=== PATIENT | male | born 1975 | race Caucasian/White ===

== ENCOUNTER 2018-05-26 19:05 | Emergency (ER) | payer MEDICAID ==
[~2018-05-26] VITALS: Ht 170.2 cm; Wt 108.0 kg
[2018-05-26 19:10] VITALS: BP_SYST 139
--- NOTE | 2018-05-26 19:20 | NUR ---
Pt came in complaining of WHITMORE which started earlier today. Reports pain is 6/10. Associated photophobia with some nausea. Denies vomitting or diarrhea. No other complaints/injuries noted. Will cont. to monitor.
--- NOTE | 2018-05-26 19:30 | NUR ---
Pt went to CT. Tolerated well. Will cont. to monitor.
--- NOTE | 2018-05-26 19:35 | NUR ---
Patient to ER bed 4 to gown for evaluation. Side rails up. Report given to Sharmila BURROWS.
--- NOTE | 2018-05-26 19:52 | NUR ---
ER Dr. Castorena at bedside examining patient.
[2018-05-26] MEDS ORDERED: DIPHENHYDRAMINE INJ 50 MG/ML VIAL IVP ONE (20:15)
[2018-05-26] MEDS ORDERED: NACL 0.9% 1,000 ML IV ONE (20:15)
[2018-05-26] MEDS ORDERED: METOCLOPRAMIDE HCL 10 MG/2 ML VIAL IVP ONE (20:15)
--- NOTE | 2018-05-26 20:53 | NUR ---
Pts states that pt wants IV out. Reports that he feels "hot". ER MD made aware. IV fluids stopped and removed.
[2018-05-26 21:36] VITALS: BP_SYST 139
--- NOTE | 2018-05-26 21:36 | NUR ---
Patient given written and verbal discharge instructions and verbalizes understanding. ER MD Dr. Castorena discussed with patient the results and treatment provided. Patient in stable condition. ID arm band removed. IV catheter removed intact and dressing applied, no active bleeding. Rx of Vistaril and Anaprox given. Patient educated on pain management and to follow up with PMD. Pain Scale 0/10. Opportunity for questions provided and answered. Medication side effect fact sheet provided.
== END 2018-05-26 21:36 | disposition home or self-care (01) ==
LOC: SED 19:05
DX: R51 Headache (principal); I10 Essential (primary) hypertension; E11.9 Type 2 diabetes mellitus without complications; F17.210 Nicotine dependence, cigarettes, uncomplicated
CPT/HCPCS: 70450; 96374; 96375; 99284; J1200; J2765; J7030

== ENCOUNTER 2022-12-27 12:44 | Emergency (ER) | payer MEDICAID, OTHER ==
[~2022-12-27] VITALS: Ht 167.6 cm; Wt 100.2 kg
[2022-12-27 12:45] VITALS: BP_SYST 118; PULSE 104; RESP 20; TEMP 97.3; O2SAT 99
[2022-12-27 13:40] LABS: BASOPHILS % (AUTO) 0.8 % (0.0-2.0); EOSINOPHILS # (AUTO) 0.1 K/uL (0.0-0.4); EOSINOPHILS % (AUTO) 2.4 % (0.0-4.0); HEMATOCRIT 49.3 % (36-54); LYMPHOCYTES # (AUTO) 1.1 K/uL (1.0-5.5); LYMPHOCYTES % (AUTO) 27.9 % (20.5-51.5); MEAN CORPUSCULAR HEMOGLOBIN 26 pg (27-31); MEAN CORPUSCULAR HGB CONC 32 % (32-36); MEAN CORPUSCULAR VOLUME 79 fL (79.0-98.0); MONOCYTES # (AUTO) 0.4 K/uL (0.0-1.0); MONOCYTES % (AUTO) 11.4 % (1.7-9.3); NEUTROPHILS # (AUTO) 2.2 K/uL (1.8-7.7); NEUTROPHILS % (AUTO) 57.5 % (40.0-70.0); PLATELET COUNT (AUTO) 189 K/uL (130-430); RED BLOOD CELL COUNT(AUTO) 6.26 MIL/uL (4.2-6.2); RED CELL DISTRIBUTION WIDTH 14.3 % (9.0-15.0); WHITE BLOOD COUNT (AUTO) 3.8 K/uL (4.8-10.8)
[2022-12-27 14:12] LABS: ANION GAP 7 (5-15); CALCIUM 9.9 mg/dL (8.4-11.0); CARBON DIOXIDE 28 mmol/L (23-29); CHLORIDE 95 mmol/L (98-107); CREATININE 0.83 mg/dL (0.55-1.30); GFR AFRICAN AMERICAN 128 mL/min (>90); GLUCOSE 131 mg/dL (74-106); POTASSIUM 3.4 mmol/L (3.5-5.1); SODIUM SERUM 130 mmol/L (136-145); UREA NITROGEN, BLOOD 20 mg/dL (8-21)
[2022-12-27 14:19] LABS: ALANINE AMINOTRANSFERASE 28 U/L (12-78); ALBUMIN 4.1 g/dL (3.4-4.8); ASPARTATE AMINOTRANSFERASE 12 U/L (10-37); BILIRUBIN,DIRECT 0.1 mg/dL (0.0-0.3); GFR NON AFRICAN-AMERICAN 106 mL/min (>90); TOTAL BILIRUBIN 0.4 mg/dL (0.0-1.0)
[2022-12-27] MEDS ORDERED: KETOROLAC TROMETHAMINE 60 MG/2 ML VIAL IM ONE (14:45)
[2022-12-27] MEDS ORDERED: IBUP-1971 PO (15:25)
[2022-12-27] MEDS ORDERED: DICL20GE TP (15:25)
[2022-12-27 15:41] VITALS: BP_SYST 132; PULSE 95; RESP 16; TEMP 98.1; O2SAT 99
== END 2022-12-27 15:37 | disposition home or self-care (01) ==
LOC: SED 12:44
DX: S46.812A Strain of other muscles, fascia and tendons at shoulder and upper arm level, left arm, initial encounter (principal); E11.9 Type 2 diabetes mellitus without complications; I10 Essential (primary) hypertension; Z79.899 Other long term (current) drug therapy; X58.XXXA Exposure to other specified factors, initial encounter; Y93.89 Activity, other specified; Y92.89 Other specified places as the place of occurrence of the external cause; Y99.8 Other external cause status
CPT/HCPCS: 99285; 80076; 80048; 85025; 84484; 36415; 73030; 96372; J1885